=== PATIENT | female | born 1985 | race African-American/Black ===

== ENCOUNTER 2021-11-06 17:11 | Emergency (ER) | payer MEDICAID, OTHER ==
[~2021-11-06] VITALS: Ht 167.6 cm; Wt 70.0 kg
[2021-11-06 18:24] LABS: Urine Bacteria FEW /hpf (None Seen); Urine Blood Negative /uL (Negative); Urine Hyaline Cast FEW /lpf (0 - 2); Urine Mucus FEW (None Seen); Urine Specific Gravity 1.029 (1.001-1.035); Urine WBC 29 /hpf (0 - 5)
[2021-11-06 19:38] LABS: Basophils # (auto) 0.1 10 ^3/uL (0-0.2); Basophils % (auto) 2.5 % (0.0-2.0); Eosinophils # (auto) 0.1 10 ^3/uL (0-0.8); Eosinophils % (auto) 1.6 % (0.0-7.0); Hematocrit 41.6 % (36.0-46.0); Hemoglobin 13.7 g/dL (12.2-16.2); Mean Corpuscular Hemoglobin 31.7 pg (28.0-32.0); Mean Corpuscular Hgb Conc. 32.9 g/dL (32.0-36.0); Mean Corpuscular Volume 96.2 fL (80.0-100.0); Monocytes # (auto) 0.4 10 ^3/uL (0-1.3); Neutrophils # (auto) 2.3 10 ^3/uL (1.6-8.6); Neutrophils % (auto) 58.9 % (37.0-80.0); Nucleated Red Blood Cells % 0.1 %; Red Blood Cells 4.33 10^6/uL (4.0-5.20); White Blood Cell 3.9 10^3/uL (4.4-10.8)
[2021-11-06 19:52] LABS: Potassium 4.7 mmol/L (3.5-5.1)
[2021-11-06 19:54] LABS: BUN/Creatinine Ratio 7.1
[2021-11-06 19:57] LABS: Bilirubin, Total 0.6 mg/dL (0.2-1.0); Total Protein 7.7 g/dL (6.4-8.2)
[2021-11-06] MEDS ORDERED: NITR-87 PO (21:55)
[2021-11-06 23:50] VITALS: BP 141/92
== END 2021-11-06 23:52 | disposition home or self-care (01) ==
LOC: ER 17:29
DX: O20.0 Threatened abortion (principal); O23.41 Unspecified infection of urinary tract in pregnancy, first trimester; N39.0 Urinary tract infection, site not specified; I10 Essential (primary) hypertension; E78.5 Hyperlipidemia, unspecified; O99.511 Diseases of the respiratory system complicating pregnancy, first trimester; J45.909 Unspecified asthma, uncomplicated; Z90.49 Acquired absence of other specified parts of digestive tract; Z3A.00 Weeks of gestation of pregnancy not specified
CPT/HCPCS: 36415; 76801; 80053; 81001; 81025; 84702; 85025

== ENCOUNTER 2022-06-15 23:11 | Observation (INO) | payer MEDICAID ==
[~2022-06-15] VITALS: Ht 170.2 cm; Wt 102.1 kg
[~2022-06-15 23:11] MED LIST: NITR-87 PO
[2022-06-15] MEDS ORDERED: PREN-96 PO (23:41)
[2022-06-16] MEDS ORDERED: PROMETHAZINE HCL 6.25 MG/5 ML ORAL SYRUP PO ONE (03:15)
[2022-06-16] MEDS ORDERED: PROMETHAZINE HCL 6.25 MG/5 ML ORAL SYRUP ONE (03:44)
[2022-06-16] MEDS ORDERED: LACTATED RINGER'S 1,000 ML IV ONE ×2 (03:45)
[2022-06-16] MEDS ORDERED: PROMETHAZINE HCL 25 MG/ML 1ML IM ONE (03:45)
[2022-06-16] MEDS ORDERED: BUTORPHANOL TARTRATE 2 MG/1 ML VIAL IM ONE (03:45)
[2022-06-16 04:30] VITALS: BP 108/63
== END 2022-06-16 07:38 | disposition home or self-care (01) ==
LOC: LDRP 23:11
PROVIDERS: ADMIT Obstetrics & Gynecology; ATTEND Obstetrics & Gynecology
DX: Z34.83 Encounter for supervision of other normal pregnancy, third trimester (principal); Z3A.28 28 weeks gestation of pregnancy
CPT/HCPCS: 59025; 76818; 81002; 82948; 82962; 94760; 96360; 96361; 96372; G0378; J0595; 96374